=== PATIENT | male | born 1960 | race Caucasian/White ===

== ENCOUNTER 2016-12-27 14:14 | Emergency (ER) | payer OTHER ==
[~2016-12-27] VITALS: Ht 195.6 cm; Wt 134.0 kg
[~2016-12-27 14:14] MED LIST: DIFL150T PO; LISI-363 PO; METH5SOL3 OR; NYSTT TOP; PHEN12.5 PO
[2016-12-27 14:16] VITALS: BP 131/70; PULSE 83; RESP 16; TEMP 98.2; O2SAT 99
[2016-12-27] MEDS ORDERED: CYCLOBENZAPRINE HCL 10 MG TAB PO ONE (15:15)
[2016-12-27] MEDS ORDERED: HYDROmorphone HCL PF 1 MG/ML VIAL IM ONE ×2 (15:15→16:00)
--- NOTE | 2016-12-27 15:21 | PD ---
HPI Chief Complaint: Pain: Acute or Chronic Time Seen by Provider: 15:12 Travel History International Travel<30 days: No Contact w/Intl Traveler<30days: No Traveled to known affect area: No History of Present Illness HPI 56 year old male presents to the emergency department for evaluation of acute exacerbation of his chronic back pain. He states he has had chronic back pain for many years. He has had surgeries by a physician Dr. Theresa Lane, a surgeon at [facility]. He said L4 to L5 refused. He also reports a spinal stimulator. Patient states he took the garbage on Wednesday and has had worsening back pain since. He is taking his Percocet without relief. He last took a Percocet 11 AM. Patient states that he has had pain like this before in the past before he had his surgery. Patient denies any new weakness. No numbness or tingling that is new. He denies any loss of bowel or bladder control. No fevers or chills. No history of IV drug use. Patient states that he would just like to get his pain under control and that he can go home and follow-up. Patient states he can ambulate, but with pain. PFSH Past Medical History Arthritis: Yes (RA IN BACK) Asthma: No Blood Disorders: No Depression: Yes Heart Rhythm Problems: No Cancer: No Cardiac Catheterization: No Cardiovascular Problems: Yes (ND 1994/ LEAKING HEART VALVE) High Cholesterol: Yes Chest Pain: Yes ([facility]) Congestive Heart Failure: No Diabetes: No Diminished Hearing: No Endocrine: No Gastrointestinal Disorders: Yes Genitourinary: No Heparin Induced Thrombocytopen: No Hypertension: Yes Immune Disorder: No Musculoskeletal: Yes Neurologic: No Psychiatric: Yes Reproductive: No Respiratory: No Myocardial Infarction: Yes (1994) Past Surgical History Abdominal Surgery: No Cardiac Surgery: No Coronary Artery Bypass Graft: No Neurologic Surgery: Yes (FUSION 2009) Pacemaker: No Other Surgery: Yes (RIGHT BUTTOCKS) Family History Family Myocardial Infarction: Yes Social History Alcohol Use: Yes ("RARELY") Tobacco Use: No Substance Use: No Allergies-Medications (Allergen,Severity, Reaction): Coded Allergies: Penicillin (Verified Allergy, Severe, DOES NOT KNOW, 11/23/11) Reported Meds & Prescriptions Reported Meds & Active Scripts Active Active Prescriptions or Reported Medications Unobtainable Review of Systems Except as stated in HPI: all other systems reviewed are Neg Physical Exam Narrative GENERAL: Well-nourished, well-developed male patient, afebrile. SKIN: Focused skin assessment warm/dry. HEAD: Normocephalic. Atraumatic. EYES: No scleral icterus. No injection or drainage. NECK: Supple, trachea midline. No JVD or lymphadenopathy. CARDIOVASCULAR: Regular rate and rhythm without murmurs, gallops, or rubs. Bilateral radial and pedal pulses are 2+. RESPIRATORY: Breath sounds equal bilaterally. No accessory muscle use. Lungs sounds are clear to auscultation. GASTROINTESTINAL: Abdomen soft, non-tender, nondistended. MUSCULOSKELETAL: No cyanosis, or edema. He has scars noted to the lower back with spinal stimulator noted. He has tenderness over this area. Bilateral upper and lower extremity strength 5/5. All extremities are neurovascularly intact. BACK: No obvious deformity. No CVA tenderness. Data Data Last Documented VS Vital Signs Date Time Temp Pulse Resp B/P Pulse Ox O2 Delivery O2 Flow Rate FiO2 12/27/16 14:16 98.2 83 16 131/70 99 Orders Hydromorphone Pf Inj (Dilaudid Pf Inj) (12/27/16 15:15) Cyclobenzaprine (Flexeril) (12/27/16 15:15) Ondansetron Odt (Zofran Odt) (12/27/16 15:30) Ct Lumb Spine W/O Contrast (12/27/16 ) Hydromorphone Pf Inj (Dilaudid Pf Inj) (12/27/16 16:00) Oxycodone-Acetamin 10-325 Mg (Percocet 1 (12/27/16 16:00) Ondansetron Odt (Zofran Odt) (12/27/16 17:45) MDM Medical Decision Making Medical Screen Exam Complete: Yes Emergency Medical Condition: Yes Medical Record Reviewed: Yes Interpretation(s) CT lumbar spine - CONCLUSION: 1. Fusion at L4-5 without canal stenosis. Bilateral laminectomy defects. 2. Multilevel disc bulges as described above. 3. Diffuse facet arthropathy and scattered neuroforaminal narrowing. Differential Diagnosis Acute exacerbation of chronic back pain versus muscle spasm versus herniated disc versus cord compression Narrative Course 56-year-old male presents to the emergency department for acute exacerbation of his chronic back pain that started on Wednesday when he took out the garbage. No obvious injury. Patient denies any new symptoms other than worsening pain. Patient is given Dilaudid 1 mg IM and Flexeril 10 mg PO for back pain. Upon re-examination, patient reports no improvement in pain. Patient is given additional Dilaudid [address] of the lumbar spine is ordered and pending. CT of the lumbar spine shows fusion at L4-5 without canal stenosis. Bilateral laminectomy defects; multilevel disc bulges as described above; diffuse facet arthropathy and scattered neuroforaminal narrowing. I discussed the findings with my attending physician, Dr. Rogers, who agrees with plan and disposition. A talked to the patient about the findings. He would like to go home. He is to return for any worsening symptoms. He verbalizes agreement and understanding. The patient was discharged in stable condition with instructions, including return instructions and follow up instructions. Diagnosis Primary Impression: Acute exacerbation of chronic low back pain Referrals: Primary Care Physician 1 day Patient Instructions: Back Pain (ED), General Instructions, Narcotic given in the ED Additional Instructions: Continue pain medication as prescribed. Follow-up with your primary care physician. Return to the emergency department for any acute worsening of symptoms. Med/Other Pt SpecificInfo: No Change to Meds Scripts Unable to Obtain Active Prescriptions or Reported Meds Disposition: 01 DISCHARGE HOME Condition: Stable Ginny French Dec 27, 2016 15:21
[2016-12-27] MEDS ORDERED: ONDANSETRON ODT 4 MG TAB PO ONE ×2 (15:30→17:45)
[2016-12-27] MEDS ORDERED: oxyCODONE/ACETAMINOPHEN 10 MG/325 MG TAB PO ONE (16:00)
--- NOTE | 2016-12-27 17:03 | RADRPT ---
EXAM DATE/TIME: 12/27/2016 16:23 [facility] COMPARISON: No previous studies available for comparison. INDICATIONS : Lower back pain for three days. RADIATION DOSE: 51.96 CTDIvol (mGy) ; Patient body habitus MEDICAL HISTORY : Hypertension. Rheumatoid arthritis. Cardiovascular disease SURGICAL HISTORY : Fusion, lumbar. ENCOUNTER: Initial ACUITY: 3 days PAIN SCALE: 8/10 LOCATION: Bilateral lower back TECHNIQUE: Volumetric scanning of the lumbar spine was performed. Multiplanar reconstructions in the sagittal, coronal and oblique axial planes were performed. Using automated exposure control and adjustment of the mA and/or kV according to patient size, radiation dose was kept as low as reasonably achievable t o obtain optimal diagnostic quality images. DICOM format image data is available electronically for review and comparison. FINDINGS: VERTEBRAE: Normal vertebral body height. Fusion at L4-5 posteriorly. Multilevel degenerative changes greatest at L4-5. Neural stimulator catheter enters the spine at T12-L1 level. ALIGNMENT: No evidence of subluxation. T12-L1: The thecal sac has a normal diameter. No evidence of disc bulge or protrusion. The neural foramina are patent bilaterally. L1-L2: Moderate broad-based posterior disc osteophyte complex abuts the ventral thecal sac and causes mild-t o-moderate canal stenosis. Moderate facet arthropathy. Mild to moderate bilateral neural foraminal na rrowing. L2-L3: Moderate broad-based posterior disc osteophyte complex abuts the ventral thecal sac and causes mild- canal stenosis. Moderate facet arthropathy. Mild bilateral neural foraminal narrowing. L3-L4: Mild broad-based bulge abuts the thecal sac. No canal stenosis. Mild to moderate facet arthropathy.. The neural foramina are patent bilaterally. L4-L5: Posterior fusion. Bilateral laminectomy defects. No canal stenosis. Mild to moderate bilateral neural frontal narrowing L5-S1: Mild broad-based disc bulge without canal stenosis. Mild facet arthropathy. The neural foramina are patent bilaterally. CONCLUSION: 1. Fusion at L4-5 without canal stenosis. Bilateral laminectomy defects. 2. Multilevel disc bulges as described above. 3. Diffuse facet arthropathy and scattered neuroforaminal narrowing. Elier Rodriguez MD on December 27, 2016 at 16:57 Board Certified Radiologist. This report was verified electronically.
== END 2016-12-27 18:34 | disposition home or self-care (01) ==
LOC: NEPD 14:14
DX: M54.5 Low back pain (principal); M45.9 Ankylosing spondylitis of unspecified sites in spine; I10 Essential (primary) hypertension; Z98.1 Arthrodesis status; E78.00 Pure hypercholesterolemia, unspecified
CPT/HCPCS: 72131; 96372; 99285; J1170